=== PATIENT | male | born 1990 | race Caucasian/White ===

== ENCOUNTER 2016-08-01 09:09 | Emergency (ER) | payer OTHER ==
[2016-08-01 09:32] VITALS: BP 119/82
[2016-08-01] MEDS ORDERED: Tetracaine 0.5% OPTH.SOL 4 ML* 1 DROP BTL ONE (09:42)
[2016-08-01] MEDS ORDERED: Tetracaine 0.5% OPTH.SOL 4 ML* 1 DROP BTL RIGHT EYE SCH (10:00)
--- NOTE | 2016-08-01 10:02 | UC ---
Eye Complaint HPI - HPI Summary HPI Summary: 26 yo male with right eye FB sensation since 07/29 seen in ER in [place] started on cipro drops no fb noted worse photophobia and FB sensation both eye tearing now - History of Current Complaint Chief Complaint: UCEye Stated Complaint: BILATERAL EYE Time Seen by Provider: 08/01/16 09:34 Hx Obtained From: Patient Onset/Duration: Sudden Onset, Lasting Days Timing: Constant Severity Initially: Moderate Severity Currently: Moderate Pain Intensity: 7 Pain Scale Used: 0-10 Numeric Location of Injury: Conjunctiva Character: Foreign Body Sensation Aggravating Factor(s): Light Alleviating Factor(s): Darkness Associated Signs And Symptoms: Positive: Photophobia, Drainage (Clear) Related History: Foreign Body Eyes: 1 - FB - Risk Factors Penetrating Injury Risk Factor: Negative Globe Rupture Risk Factors: Negative Acute Glaucoma Risk Factors: Negative Optic Artery Occlusion Risk Factors: Negative - Allergies/Home Medications Allergies/Adverse Reactions: Allergies Allergy/AdvReac Type Severity Reaction Status Date / Time No Known Allergies Allergy Verified 08/01/16 09:18 Home Medications: Home Medications Ofloxacin 0.3% OTIC.CAITLIN* [Floxin 0.3% OTIC.CAITLIN*] 2 drop RIGHT EYE QID 08/01/16 [ History Confirmed 08/01/16] PMH/Surg Hx/FS Hx/Imm Hx Previously Healthy: Yes Endocrine History Of: Denies: Diabetes Cardiovascular History Of: Denies: Hypertension, Congestive Heart Failure GI/ History Of: Denies: Renal Disease - Surgical History Surgical History: None - Family History Known Family History: Positive: Hypertension - Social History Alcohol Use: None Substance Use Type: Marijuana Smoking Status (MU): Never Smoked Tobacco - Immunization History Most Recent Tetanus Shot: ~2009 Review of Systems Constitutional: Negative Skin: Negative Eyes: Eye Redness, Photophobia ENT: Negative Respiratory: Negative Cardiovascular: Negative Gastrointestinal: Negative Genitourinary: Negative Motor: Negative Neurovascular: Negative Musculoskeletal: Negative Neurological: Negative Psychological: Negative All Other Systems Reviewed And Are Negative: Yes Physical Exam Triage Information Reviewed: Yes Appearance: Well-Appearing, No Pain Distress, Well-Nourished Vital Signs: Initial Vital Signs Temp 98.2 F 08/01/16 09:15 Pulse 90 08/01/16 09:15 Resp 14 08/01/16 09:15 BP 119/82 08/01/16 09:15 Pulse Ox 99 08/01/16 09:15 Vital Signs Reviewed: Yes Eyes: Positive: Other: - FB noted ENT: Positive: Hearing grossly normal. Negative: Nasal congestion, Nasal drainage, Trismus, Muffled/hoarse voice Neck: Positive: Supple, Nontender Respiratory: Positive: Lungs clear, Normal breath sounds, No respiratory distress Cardiovascular: Positive: RRR, No Murmur Musculoskeletal: Positive: ROM Intact Neurological: Positive: Alert Psychological Exam: Normal Skin Exam: Normal Procedures - Eye Procedure Alcaine Drops Administered: No - 2 drops tetracaine right eye Eye FB Removal: removal w/ needle Eye Complaint Course/Dx - Course Course Of Treatment: residual rust ring after FB removal - Differential Dx/Diagnosis Provider Diagnoses: right corneal Foreign Body-removed. residual rust ring Discharge - Discharge Plan Condition: Stable Disposition: HOME Patient Education Materials: Eye Foreign Body (ED) Forms: *Work Release Referrals: No Primary Care Phys,NOPCP [Primary Care Provider] - Additional Instructions: a metallic foreign body was removed you have a residual RUST RING continue eye drop for three days sunglasses see eye MD in [place] tomorrow if not better you may need rust ring removed
== END 2016-08-01 10:04 | disposition home or self-care (01) ==
LOC: UCCORT 09:09
DX: T15.01XA Foreign body in cornea, right eye, initial encounter (principal); X58.XXXA Exposure to other specified factors, initial encounter; Y93.9 Activity, unspecified; Y92.9 Unspecified place or not applicable
CPT/HCPCS: 65220; 99212; A9270-GY; G0463